=== PATIENT | female | born 1970 | race Caucasian/White ===

== ENCOUNTER 2019-02-18 15:11 | Outpatient (CLI) | payer OTHER ==
[2019-02-18 16:25] LABS: MEAN CORPUSCULAR HEMOGLOBIN 30.8 pg (27.0-34.8); MEAN CORPUSCULAR VOLUME 93.4 fL (80-100); PLATELET COUNT 403 x10^3/uL (130-400); RED BLOOD COUNT 4.71 x10^6/uL (3.82-5.3); RED CELL DISTRIBUTION WIDTH 13.9 % (9.6-15.2)
[2019-02-18 16:31] LABS: ALANINE AMINOTRANSFERASE 24 U/L (12-78); ALBUMIN 3.8 g/dL (3.4-5.0); ANION GAP 6 mmol/L (5-15); CALCIUM 8.6 mg/dL (8.5-10.1); CHLORIDE 108 mmol/L (98-107); CREATININE 0.63 mg/dL (0.55-1.02)
[2019-02-18 16:33] LABS: ALKALINE PHOSPHATASE 58 U/L (45-117); BILIRUBIN,TOTAL 0.2 mg/dL (0.2-1.0); TOTAL PROTEIN 7.9 g/dL (6.4-8.2)
[2019-02-18] MEDS ORDERED: LEVO1.5T10 PO (16:35)
[2019-02-18 17:27] LABS: BASOPHILS # (AUTO) 0.06 x10^3/uL (0-0.1); BASOPHILS % (AUTO) 0 % (0-1); EOSINOPHILS # (AUTO) 0.87 x10^3/uL (0-0.4); EOSINOPHILS % (AUTO) 6 % (1-7); LYMPHOCYTES # (AUTO) 5.22 x10^3/uL (1-3.4); LYMPHOCYTES % (AUTO) 35 % (22-44); MD SCAN; MONOCYTES # (AUTO) 0.74 x10^3/uL (0.2-0.8); MONOCYTES % (AUTO) 5 % (2-9); NEUTROPHILS # (AUTO) 8.11 x10^3/uL (1.8-6.8); NEUTROPHILS % (AUTO) 54 % (42-75)
== END 2019-02-18 23:59 | disposition home or self-care (01) ==
LOC: STAR 15:11
PROVIDERS: ATTEND Surgery
DX: Z01.818 Encounter for other preprocedural examination (principal); Z90.49 Acquired absence of other specified parts of digestive tract
CPT/HCPCS: 36415; 80053; 85025; 93005

== ENCOUNTER 2019-02-23 08:32 | Inpatient (IN) | payer OTHER ==
[~2019-02-23] VITALS: Ht 160 cm; Wt 80.6 kg
[~2019-02-23 08:32] MED LIST: LEVO1.5T10 PO
[2019-02-23] MEDS ORDERED: SCOPOLAMINE PATCH, 1.5MG PATCH.TD72 TD ONE (09:00)
[2019-02-23] MEDS ORDERED: GABAPENTIN 300 MG CAPSULE PO ONE (09:00)
[2019-02-23] MEDS ORDERED: LACTATED RINGERS 1,000 ML IV SCH (09:06)
[2019-02-23 09:10] VITALS: BP 131/89
[2019-02-23 09:55] LABS: HCG UR SG 1.014 (1.003-1.030)
[2019-02-23] MEDS ORDERED: MIDAZOLAM 1 MG/ML, 2ML ONE (11:21)
[2019-02-23] MEDS ORDERED: ROPIvacaine/PF 0.5%, 30 ML ONE ×3 (11:32→12:27)
[2019-02-23] MEDS ORDERED: FENTANYL PF 250 MCG/5ML ONE (11:32)
[2019-02-23] MEDS ORDERED: DEXMEDETOMIDINE 200 MCG/2 ML ONE (11:38)
[2019-02-23] MEDS ORDERED: PHENYLEPHRINE 10 MG/ML ONE (11:41)
[2019-02-23] MEDS ORDERED: CEFOTETAN PMX 2GM/50ML 50 ML ONE (12:27)
[2019-02-23] MEDS ORDERED: LIDOCAINE-MPF 2% ,5ML ONE (12:27)
[2019-02-23] MEDS ORDERED: DEXAMETHASONE 4 MG/ML, 1ML ONE (12:27)
[2019-02-23] MEDS ORDERED: PROPOFOL 10 MG/ML, 20ML ONE (12:27)
[2019-02-23] MEDS ORDERED: ONDANSETRON 2MG/ML, 2ML ONE (12:27)
[2019-02-23] MEDS ORDERED: ROCURONIUM 10MG/ML,5ML ONE (12:27)
[2019-02-23] MEDS ORDERED: MEPERIDINE/PF 25MG/0.5ML IVPush PRN (12:30)
[2019-02-23] MEDS ORDERED: OXYcodone 5 MG/5 ML ORAL.SOL UDC PO PRN (12:30)
[2019-02-23] MEDS ORDERED: HALOPERIDOL 5 MG/ML IV PRN (12:30)
[2019-02-23] MEDS ORDERED: hydrALAzine 20 MG/ML, 1ML IV PRN (12:30)
[2019-02-23] MEDS ORDERED: HYDROmorphone 2 MG/ML, 1ML IVPush PRN (12:30)
[2019-02-23] MEDS ORDERED: PROMETHAZINE 25 MG/ML, 1ML IV PRN (12:30)
[2019-02-23] MEDS ORDERED: GLYCOPYRROLATE 0.4 MG/2 ML, 2ML ONE (13:04)
[2019-02-23] MEDS ORDERED: NEOSTIGMINE 1 MG/ML, 10ML ONE ×2 (13:04)
[2019-02-23] MEDS ORDERED: FENTANYL PF 100 MCG/2ML ONE (13:33)
[2019-02-23] MEDS ORDERED: OXYcodone 5 MG/5 ML ORAL.SOL UDC ONE (13:33)
[2019-02-23] MEDS: FENTANYL PF 100 MCG/2ML IV PRN ×3 (13:36→14:00)
[2019-02-23 15:00] VITALS: BP 111/74
[2019-02-23] MEDS ORDERED: MORPHINE SULFATE 4 MG/ML, 1ML IVPush PRN (16:00)
[2019-02-23] MEDS ORDERED: LORazepam 2 MG/ML, 1ML IVPush PRN (16:00)
[2019-02-23] MEDS ORDERED: LORazepam 1MG TABLET PO PRN (16:00)
[2019-02-23] MEDS ORDERED: DIPHENHYDRAMINE 50 MG/ML, 1ML IVPush PRN (16:00)
[2019-02-23] MEDS ORDERED: DIPHENHYDRAMINE 25 MG CAPSULE PO PRN (16:00)
[2019-02-23] MEDS ORDERED: DEXAMETHASONE 4 MG/ML, 1ML IVPush PRN (16:00)
[2019-02-23] MEDS ORDERED: ONDANSETRON 2MG/ML, 2ML IV PRN (16:00)
[2019-02-23] MEDS ORDERED: SCOPOLAMINE PATCH, 1.5MG PATCH.TD72 TD PRN (16:00)
[2019-02-23] MEDS ORDERED: HALOPERIDOL 5 MG/ML IVPush PRN (16:00)
[2019-02-23] MEDS ORDERED: TRAZODONE 50MG TABLET PO PRN (16:00)
[2019-02-23] MEDS ORDERED: CALCIUM CARBONATE 500 MG TAB.CHEW PO PRN (16:00)
[2019-02-23] MEDS: D5%-0.45NACL+KCL 20MEQ 1,000 ML IV SCH ×2 (16:12→23:11)
[2019-02-23] MEDS: IBUPROFEN 800 MG TABLET PO SCH ×2 (16:12→20:04)
[2019-02-23] MEDS: ACETAMINOPHEN 500 MG TABLET PO SCH ×2 (16:12→21:48)
[2019-02-23] MEDS: ENOXAPARIN 40 MG/0.4 ML SQ SCH (18:04)
[2019-02-23] MEDS: OXYcodone IR 5MG TABLET PO PRN (18:04)
[2019-02-23 20:33] VITALS: BP 112/73
[2019-02-24 00:04] VITALS: BP 102/68
[2019-02-24] MEDS: ACETAMINOPHEN 500 MG TABLET PO SCH ×4 (03:41→20:43)
[2019-02-24] MEDS: OXYcodone IR 5MG TABLET PO PRN ×4 (03:41→18:23)
[2019-02-24 03:46] VITALS: BP 118/81
[2019-02-24 03:51] LABS: ANION GAP 7 mmol/L (5-15); CALCIUM 8.3 mg/dL (8.5-10.1); CHLORIDE 109 mmol/L (98-107); CREATININE 0.69 mg/dL (0.55-1.02)
[2019-02-24 04:25] LABS: MEAN CORPUSCULAR HGB CONC 34.2 g/dL (32.4-35.8); MEAN CORPUSCULAR VOLUME 90.6 fL (80-100); MEAN PLATELET VOLUME 7.7 fL (7.4-10.4); PLATELET COUNT 390 x10^3/uL (130-400); RED BLOOD COUNT 4.18 x10^6/uL (3.82-5.3); RED CELL DISTRIBUTION WIDTH 13.1 % (9.6-15.2)
[2019-02-24 04:28] LABS: BASOPHILS # (AUTO) 0.03 x10^3/uL (0-0.1); BASOPHILS % (AUTO) 0 % (0-1); EOSINOPHILS % (AUTO) 0 % (1-7); LYMPHOCYTES # (AUTO) 1.87 x10^3/uL (1-3.4); LYMPHOCYTES % (AUTO) 13 % (22-44); MD SCAN; MONOCYTES # (AUTO) 0.66 x10^3/uL (0.2-0.8); MONOCYTES % (AUTO) 5 % (2-9); NEUTROPHILS # (AUTO) 12.22 x10^3/uL (1.8-6.8); NEUTROPHILS % (AUTO) 83 % (42-75)
[2019-02-24 07:58] VITALS: BP 126/78
[2019-02-24] MEDS: IBUPROFEN 800 MG TABLET PO SCH ×3 (09:27→20:43)
[2019-02-24 13:35] VITALS: BP 118/94
[2019-02-24] MEDS: ENOXAPARIN 40 MG/0.4 ML SQ SCH (18:17)
[2019-02-24 19:00] VITALS: BP 124/82
[2019-02-24] MEDS: D5%-0.45NACL+KCL 20MEQ 1,000 ML IV SCH ×2 (19:29→20:43)
[2019-02-25 00:59] VITALS: BP 99/71
[2019-02-25 03:12] LABS: MEAN CORPUSCULAR HEMOGLOBIN 31.5 pg (27.0-34.8); MEAN CORPUSCULAR HGB CONC 33.9 g/dL (32.4-35.8); MEAN CORPUSCULAR VOLUME 92.9 fL (80-100); MEAN PLATELET VOLUME 7.9 fL (7.4-10.4); PLATELET COUNT 329 x10^3/uL (130-400); RED BLOOD COUNT 3.79 x10^6/uL (3.82-5.3); RED CELL DISTRIBUTION WIDTH 13.9 % (9.6-15.2)
[2019-02-25 03:23] LABS: ANION GAP 6 mmol/L (5-15); CALCIUM 7.8 mg/dL (8.5-10.1); CHLORIDE 111 mmol/L (98-107)
[2019-02-25 03:24] LABS: CREATININE 0.66 mg/dL (0.55-1.02)
[2019-02-25] MEDS: ACETAMINOPHEN 500 MG TABLET PO SCH ×2 (04:00→08:18)
[2019-02-25 04:22] LABS: BASOPHILS # (AUTO) 0.07 x10^3/uL (0-0.1); BASOPHILS % (AUTO) 1 % (0-1); EOSINOPHILS # (AUTO) 0.27 x10^3/uL (0-0.4); EOSINOPHILS % (AUTO) 2 % (1-7); LYMPHOCYTES # (AUTO) 5.26 x10^3/uL (1-3.4); LYMPHOCYTES % (AUTO) 38 % (22-44); MD SCAN; MONOCYTES # (AUTO) 0.74 x10^3/uL (0.2-0.8); MONOCYTES % (AUTO) 5 % (2-9); NEUTROPHILS # (AUTO) 7.34 x10^3/uL (1.8-6.8); NEUTROPHILS % (AUTO) 54 % (42-75)
[2019-02-25] MEDS: OXYcodone IR 5MG TABLET PO PRN ×2 (06:37→10:44)
[2019-02-25 07:15] VITALS: BP 109/75
[2019-02-25] MEDS: IBUPROFEN 800 MG TABLET PO SCH (08:18)
[2019-02-25 10:45] VITALS: BP 115/79
[2019-02-25] MEDS ORDERED: OXYC-302 PO (11:05)
[2019-02-25] MEDS ORDERED: ENOX40SY4 SQ (11:06)
== END 2019-02-25 11:38 | disposition home or self-care (01) | DRG 331 ==
LOC: ORIP 08:32 → 4NOR 15:19 → DCLOUNGE 02-25 11:12
PROVIDERS: ADMIT Surgery; ATTEND Surgery
PROC: 3E0T3BZ Introduction of Anesthetic Agent into Peripheral Nerves and Plexi, Percutaneous Approach (ICD-10-PCS; 2019-02-23)
PROC: 0DTF4ZZ Resection of Right Large Intestine, Percutaneous Endoscopic Approach (ICD-10-PCS; principal; 2019-02-23 10:30)
DX: C18.2 Malignant neoplasm of ascending colon (principal); Z88.1 Allergy status to other antibiotic agents; Z88.2 Allergy status to sulfonamides; Z88.8 Allergy status to other drugs, medicaments and biological substances; Z80.0 Family history of malignant neoplasm of digestive organs; Z98.891 History of uterine scar from previous surgery; Z82.49 Family history of ischemic heart disease and other diseases of the circulatory system; Z84.89 Family history of other specified conditions
CPT/HCPCS: 36415; J3490; 80048; 81025; 85025; 86850; 86900; 88307; 88309; 88341; 88342; 88360; G0378; J1100; J1650; J2250; J2405; J2704; J2710; J2795; J3010; J2370; J3480; J7120

== ENCOUNTER 2020-02-22 11:25 | Observation (INO) | payer OTHER, BC ==
[~2020-02-22] VITALS: Ht 160 cm; Wt 78.3 kg
[~2020-02-22 11:25] MED LIST changes: +CHOL10003 PO; +ENOX40SY4 SQ; +OXYC-302 PO
[2020-02-22] MEDS ORDERED: GABAPENTIN 300 MG CAPSULE PO ONE (12:00)
[2020-02-22] MEDS ORDERED: CHLORHEXIDINE 15 ML UDC MM ONE (12:00)
[2020-02-22] MEDS ORDERED: ACETAMINOPHEN 500 MG TABLET PO ONE (12:00)
[2020-02-22] MEDS ORDERED: LACTATED RINGERS 1,000 ML IV SCH (12:13)
[2020-02-22] MEDS ORDERED: PROMETHAZINE 25 MG/ML, 1ML IVPush PRN (12:30)
[2020-02-22] MEDS ORDERED: hydrALAzine 20 MG/ML, 1ML IV PRN (12:30)
[2020-02-22] MEDS ORDERED: HALOPERIDOL 5 MG/ML IV PRN (12:30)
[2020-02-22] MEDS ORDERED: DIPHENHYDRAMINE 50 MG/ML, 1ML IVPush PRN ×2 (12:30→19:00)
[2020-02-22] MEDS ORDERED: HYDROmorphone 1 MG/ML, 1ML INJ IVPush PRN ×2 (12:30→19:00)
[2020-02-22] MEDS ORDERED: MEPERIDINE/PF 25MG/0.5ML IVPush PRN (12:30)
[2020-02-22] MEDS ORDERED: OXYcodone 5 MG/5 ML ORAL.SOL UDC PO PRN (12:30)
[2020-02-22] MEDS ORDERED: LABETALOL 5MG/ML, 20ML IV PRN (12:30)
[2020-02-22] MEDS ORDERED: FENTANYL PF 250 MCG/5ML ONE ×2 (12:43→15:24)
[2020-02-22] MEDS ORDERED: MIDAZOLAM 1 MG/ML, 2ML ONE (12:43)
[2020-02-22] MEDS ORDERED: BUPIVACAINE/PF-EPI 0.5% 1:200K ONE (12:57)
[2020-02-22 13:19] LABS: HCG UR SG 1.022 (1.003-1.030)
[2020-02-22] MEDS ORDERED: ONDANSETRON 2MG/ML, 2ML ONE (16:55)
[2020-02-22] MEDS ORDERED: PROPOFOL 10 MG/ML, 20ML ONE (16:55)
[2020-02-22] MEDS ORDERED: NEOSTIGMINE 1 MG/ML, 10ML ONE (16:55)
[2020-02-22] MEDS ORDERED: SUCCINYLCHOLINE 20 MG/ML, 10ML ONE (16:55)
[2020-02-22] MEDS ORDERED: GLYCOPYRROLATE 0.2MG/1ML, 5ML ONE (16:55)
[2020-02-22] MEDS ORDERED: DEXAMETHASONE 4 MG/ML, 1ML ONE (16:55)
[2020-02-22] MEDS ORDERED: CEFAZOLIN 1,000 MG ONE (16:55)
[2020-02-22] MEDS ORDERED: ROCURONIUM 10MG/ML,5ML ONE (16:55)
[2020-02-22] MEDS ORDERED: FENTANYL PF 100 MCG/2ML ONE (17:21)
[2020-02-22] MEDS ORDERED: OXYcodone 5 MG/5 ML ORAL.SOL UDC ONE (17:21)
[2020-02-22] MEDS ORDERED: PROMETHAZINE 25 MG/ML, 1ML ONE (17:21)
[2020-02-22] MEDS: FENTANYL PF 100 MCG/2ML IV PRN ×2 (17:23→17:39)
[2020-02-22] MEDS ORDERED: HYDROmorphone 1 MG/ML, 1ML INJ ONE (17:49)
[2020-02-22] MEDS ORDERED: HALOPERIDOL 5 MG/ML IVPush PRN (19:00)
[2020-02-22] MEDS ORDERED: D5%-0.45NACL+KCL 20MEQ 1,000 ML IV SCH (19:00)
[2020-02-22] MEDS ORDERED: ONDANSETRON 2MG/ML, 2ML IV PRN (19:00)
[2020-02-22] MEDS ORDERED: SCOPOLAMINE 1MG PATCH TD PRN (19:00)
[2020-02-22] MEDS ORDERED: DEXAMETHASONE 4 MG/ML, 1ML IVPush PRN (19:00)
[2020-02-22] MEDS: ACETAMINOPHEN 500 MG TABLET PO SCH (19:37)
[2020-02-22] MEDS: KETOROLAC 30 MG/1 ML IVPush SCH (19:37)
[2020-02-22 20:10] VITALS: BP 127/82
[2020-02-22] MEDS ORDERED: ENOXAPARIN 40 MG/0.4 ML SQ SCH (21:00)
[2020-02-22] MEDS: OXYcodone IR 5MG TABLET PO PRN (21:17)
[2020-02-22 23:05] VITALS: BP 120/83
[2020-02-23] MEDS: KETOROLAC 30 MG/1 ML IVPush SCH ×2 (01:04→07:22)
[2020-02-23] MEDS: ACETAMINOPHEN 500 MG TABLET PO SCH ×2 (01:04→07:22)
[2020-02-23 03:41] VITALS: BP 116/76
[2020-02-23] MEDS: OXYcodone IR 5MG TABLET PO PRN ×2 (03:46→08:07)
[2020-02-23 06:54] VITALS: BP 139/84
[2020-02-23] MEDS ORDERED: OXYC5CAP2 PO (09:18)
[2020-02-23] MEDS ORDERED: ACET-2065 PO (09:22)
[2020-02-23] MEDS ORDERED: IBUP-1222 PO (09:24)
[2020-02-23] MEDS ORDERED: DOCU-131 PO (09:24)
== END 2020-02-23 09:47 | disposition home or self-care (01) ==
LOC: OUT 11:25 → 4NE 18:35 → OUT 18:36 → 4NE 18:36 → DCLOUNGE 02-23 09:36
PROVIDERS: ADMIT Student in an Organized Health Care Education/Training Program; ATTEND Student in an Organized Health Care Education/Training Program
DX: Z03.818 Encounter for observation for suspected exposure to other biological agents ruled out (principal); K43.2 Incisional hernia without obstruction or gangrene; D86.0 Sarcoidosis of lung; Z85.038 Personal history of other malignant neoplasm of large intestine
CPT/HCPCS: 49566; 49568; 81025; 96372; 96374; 96375; 96376; C1781; G0378; J0330; J0690; J1100; J1170; J1650; J1885; J2250; J2405; J2550; J2704; J2710; J3010; J3480; J7120; S2900; U0001